=== PATIENT | male | born 1985 | race Caucasian/White ===

== ENCOUNTER → 2019-08-09 | Outpatient (CLI) | payer OTHER ==
[2019-08-09 09:58] LABS: BASOPHILS ABSOLUTE AUTO 0.06 K/mm3 (0.00-0.23); BASOPHILS PERCENT AUTO 1 % (0-2); EOSINOPHILS ABSOLUTE AUTO 0.42 K/mm3 (0.00-0.68); EOSINOPHILS PERCENT AUTO 4 % (0-6); Hemoglobin 17.2 g/dL (13.5-17.5); IMMATURE GRAN ABSOLUTE AUTO 0.09 K/mm3 (0.00-0.10); IMMATURE GRAN PERCENT AUTO 1 % (0-1); LYMPHOCYTES ABSOLUTE AUTO 2.07 K/mm3 (0.84-5.20); LYMPHOCYTES PERCENT AUTO 20 % (21-46); MONOCYTES ABSOLUTE AUTO 0.85 K/mm3 (0.16-1.47); MONOCYTES PERCENT AUTO 8 % (4-13); Mean Corpuscular HGB 19.5 pg (26.0-34.0); Mean Corpuscular HGB Conc 30.4 g/dL (31.5-36.5); Mean Corpuscular Volume 64 fL (80-100); Mean Platelet Volume 9.9 fL (9.1-12.4); NEUTROPHILS ABSOLUTE AUTO 6.98 K/mm3 (1.96-9.15); NEUTROPHILS PERCENT AUTO 67 % (41-73); NRBC ABSOLUTE 0.02 K/mm3 (0.00-0.02); NRBC Auto 0.2 /100 WBC (0.0-0.2); Platelet Count 282 K/mm3 (150-400); RDW Coefficient Variation 19.4 % (11.7-14.2); RDW Standard Deviation 35.4 fL (35.1-46.3); White Blood Cell Count 10.47 K/mm3 (4.00-11.30)
[2019-08-09 10:00] LABS: Hematocrit 56.5 % (37.0-53.0); Red Blood Cell Count >8.60 M/mm3 (4.30-5.90)
== END ==
LOC: LAB 09:48 → LAB SHORT 09:48
PROVIDERS: Nurse Practitioner Psychiatric/Mental Health
DX: R71.8 Other abnormality of red blood cells (principal)
CPT/HCPCS: 85025

== ENCOUNTER → 2020-09-01 | Outpatient (CLI) | payer OTHER ==
[2020-09-03 16:08] LABS: CORONAVIRUS (COVID19) CSH-NRL Negative (Negative)
== END | disposition home or self-care (01) ==
LOC: LAB SHORT 16:43 → LAB EV 16:43
PROVIDERS: Family Medicine
DX: J06.9 Acute upper respiratory infection, unspecified (principal); Z20.828 Contact with and (suspected) exposure to other viral communicable diseases
CPT/HCPCS: U0003

== ENCOUNTER 2020-10-08 21:02 | Emergency (ER) | payer OTHER ==
[~2020-10-08] VITALS: Ht 188 cm; Wt 129.7 kg
[2020-10-08] MEDS ORDERED: CRUTCH2 XX (21:46)
[2020-10-08] MEDS ORDERED: IBU800 MG PO (21:46)
[2020-10-08] MEDS ORDERED: HYDR1TAB94 PO (21:46)
== END 2020-10-08 22:33 | disposition home or self-care (01) ==
LOC: ER 21:02
DX: S92.351A Displaced fracture of fifth metatarsal bone, right foot, initial encounter for closed fracture (principal); Z88.2 Allergy status to sulfonamides; W18.2XXA Fall in (into) shower or empty bathtub, initial encounter
CPT/HCPCS: 29515; 73630; 99283-25; A9270

== ENCOUNTER 2021-02-05 17:20 | Emergency (ER) | payer OTHER ==
[~2021-02-05] VITALS: Ht 188 cm; Wt 129.7 kg
[~2021-02-05 17:20] MED LIST: CRUTCH2 XX; HYDR1TAB94 PO; IBU800 MG PO
[2021-02-05] MEDS ORDERED: CETI5 PO (17:55)
[2021-02-05] MEDS ORDERED: TESTOSTERONE (17:57)
[2021-02-05] MEDS ORDERED: ESTROGEN BLOCKER (17:58)
== END 2021-02-05 19:03 | disposition home or self-care (01) ==
LOC: ER 17:20
DX: U07.1 COVID-19 (principal); Z88.2 Allergy status to sulfonamides; Z79.899 Other long term (current) drug therapy
CPT/HCPCS: 99283